=== PATIENT | female | born 1975 | race American Indian/Alaskan Native ===

== ENCOUNTER 2016-12-24 08:31 | Outpatient (CLI) | payer OTHER ==
--- NOTE | 2016-12-24 11:02 | XRay Report ---
Right tibia fibula 2 views. History: Right tibial pain. Findings: There are no fractures or other acute findings. Bone mineralization is normal. There is narrowing of the medial knee joint space. There is mild periosteal new bone in the posterior aspect of the proximal shaft of the tibia. This is a nonspecific finding. Impression: No acute findings.
--- NOTE | 2016-12-24 11:04 | XRay Report ---
AP and lateral the lumbar spine. History: Low back pain. Findings: There are no fractures or subluxations. There is mild narrowing of the joint space at L5-S1. Early anterior hypertrophic changes are seen in the lower lumbar spine. Bony mineralization is normal. The pedicles are intact. Impression: No acute findings.
== END 2016-12-24 08:32 | disposition home or self-care (01) ==
LOC: XRAY 08:31
PROVIDERS: ATTEND Internal Medicine
DX: M54.5 Low back pain (principal); M79.661 Pain in right lower leg; J45.909 Unspecified asthma, uncomplicated
CPT/HCPCS: 72100

== ENCOUNTER 2017-01-20 07:30 | Outpatient (CLI) | payer OTHER ==
[2017-01-20] MEDS ORDERED: PROVENTIL IH ONE (07:44)
== END 2017-01-20 07:31 | disposition home or self-care (01) ==
LOC: PF 07:30
PROVIDERS: ATTEND Internal Medicine
DX: J45.909 Unspecified asthma, uncomplicated (principal)
CPT/HCPCS: 94060; 94640; 94729